=== PATIENT | female | born 1985 | race Caucasian/White ===

== ENCOUNTER 2021-04-29 11:59 | Emergency (ER) | payer BC, OTHER ==
[2021-04-29 12:04] VITALS: BP 129/86; PULSE 84; TEMP 97.8; BMI 29.2
[2021-04-29] MEDS ORDERED: KETOROLAC TROMETHAMINE 60 MG/2 ML VIAL IM ONE (13:33)
[2021-04-29] MEDS ORDERED: KETOROLAC TROMETHAMINE 60 MG/2 ML VIAL ONE (13:43)
== END 2021-04-29 14:48 | disposition home or self-care (01) ==
LOC: JERFT 11:59
PROC: 3E0233Z Introduction of Anti-inflammatory into Muscle, Percutaneous Approach (ICD-10-PCS; principal; 2021-04-29)
DX: M54.50 Low back pain, unspecified (principal)
CPT/HCPCS: 99283-25

== ENCOUNTER 2021-06-17 22:15 | Emergency (ER) | payer OTHER ==
[2021-06-17 22:24] VITALS: BP 118/75; PULSE 77; TEMP 97; BMI 31.1
[2021-06-17 23:39] LABS: BASO % 0.4 % (0-2.0); EOS % 0.4 % (0-4.5); HEMATOCRIT 36.9 % (32.4-45.2); HEMOGLOBIN 11.9 GM/dL (10.7-15.3); LYMPH % 23.3 % (8-40); MCH 23.1 pg (25.7-33.7); MCHC 32.1 g/dl (32.0-36.0); MEAN CELL VOLUME 71.9 fl (80-96); MEAN PLT VOLUME 8.4 fl (7.5-11.1); MONO % 9.1 % (3.8-10.2); NEUT % 66.8 % (42.8-82.8); PLATELET COUNT 365 10^3/uL (134-434); RBC 5.13 M/mm3 (3.60-5.2); RDW 15.8 % (11.6-15.6); WHITE BLOOD COUNT 13.5 K/mm3 (4.0-10.0)
[2021-06-17 23:46] LABS: EPI CELLS 4 /uL (0-25.1); HYALINE CASTS 1 /uL (0-3.1); PH,URINE 7.5 (5.0-8.0); URINE APPEARANCE CLEAR; URINE BACTERIA 940 /uL (0-1359); URINE BILIRUBIN NEGATIVE (NEGATIVE); URINE COLOR YELLOW; URINE GLUCOSE (UA) NEGATIVE (NEGATIVE); URINE KETONE NEGATIVE (NEGATIVE); URINE LEUK ESTERASE 2+ (NEGATIVE); URINE NITRITE NEGATIVE (NEGATIVE); URINE PROTEIN NEGATIVE (NEGATIVE); URINE RBC 58 /uL (0-23.9); URINE WBC 408 /uL (0-25.8)
[2021-06-17 23:55] LABS: INR 1.07 (0.83-1.09); PROTHROMBIN TIME (PATIENT) 12.3 SEC (9.7-13.0)
[2021-06-17 23:58] LABS: ACTIVATED PTT 30.8 SECONDS (25.2-36.5)
[2021-06-18 00:09] LABS: ALBUMIN 3.5 g/dl (3.4-5.0); BLOOD UREA NITROGEN 17.4 mg/dL (7-18); CALCIUM 9.1 mg/dL (8.5-10.1)
[2021-06-18 00:13] LABS: CREATININE 0.8 mg/dL (0.55-1.3)
[2021-06-18 00:14] LABS: TOT PROT 7.2 g/dl (6.4-8.2)
[2021-06-18 00:50] LABS: BILIRUBIN,TOTAL 0.2 mg/dL (0.2-1)
== END 2021-06-18 02:22 | disposition home or self-care (01) ==
LOC: JER 22:15
DX: O20.8 Other hemorrhage in early pregnancy (principal); N39.0 Urinary tract infection, site not specified
CPT/HCPCS: 36415; 76817-TC; 80053; 81003; 84702; 85025; 85610; 85730; 86850; 86900; 86901; 87086; 87186; 99284-25

== ENCOUNTER 2022-07-13 09:33 | Emergency (ER) | payer OTHER ==
[2022-07-13 09:45] VITALS: BP 113/61; PULSE 91; RESP 16; TEMP 99; BMI 30.2
== END 2022-07-13 10:07 | disposition home or self-care (01) ==
LOC: JER 09:33 → JERFT 09:33
DX: H10.32 Unspecified acute conjunctivitis, left eye (principal)
CPT/HCPCS: 99283-25

== ENCOUNTER 2023-01-31 16:24 | Emergency (ER) | payer OTHER ==
[2023-01-31 16:29] VITALS: BMI 34.0
[2023-01-31 17:59] LABS: BASO % 0.4 % (0-2.0); EOS % 0.6 % (0-4.5); HEMATOCRIT 38.8 % (32.4-45.2); HEMOGLOBIN 12.2 GM/dL (10.7-15.3); LYMPH % 24.3 % (8-40); MCH 23.1 pg (25.7-33.7); MCHC 31.5 g/dl (32.0-36.0); MEAN CELL VOLUME 73.3 fl (80-96); MEAN PLT VOLUME 9.5 fl (7.5-11.1); MONO % 7.7 % (3.8-10.2); PLATELET COUNT 285 10^3/uL (134-434); RBC 5.29 M/mm3 (3.60-5.2); RDW 14.7 % (11.6-15.6); WHITE BLOOD COUNT 10.3 K/mm3 (4.0-10.0)
[2023-01-31 18:05] LABS: EPI CELLS 3 /uL (0-25.1); HYALINE CASTS 0 /uL (0-3.1); PH,URINE 6.5 (5.0-8.0); URINE APPEARANCE CLEAR; URINE BACTERIA 52 /uL (0-1359); URINE BILIRUBIN NEGATIVE (NEGATIVE); URINE COLOR YELLOW; URINE GLUCOSE (UA) NEGATIVE (NEGATIVE); URINE KETONE NEGATIVE (NEGATIVE); URINE LEUK ESTERASE NEGATIVE (NEGATIVE); URINE NITRITE NEGATIVE (NEGATIVE); URINE PROTEIN NEGATIVE (NEGATIVE); URINE RBC 19 /uL (0-23.9); URINE UROBILINOGEN 0.2 mg/dL (0.2-1.0); URINE WBC 1 /uL (0-25.8)
[2023-01-31 18:22] LABS: POTASSIUM 3.7 mmol/L (3.5-5.1)
[2023-01-31 18:25] LABS: ALBUMIN 3.5 g/dl (3.4-5.0); BLOOD UREA NITROGEN 13.4 mg/dL (7-18)
[2023-01-31 18:28] LABS: CREATININE 0.7 mg/dL (0.55-1.3)
[2023-01-31 18:29] LABS: BILIRUBIN,TOTAL 0.1 mg/dL (0.2-1)
[2023-01-31 18:30] LABS: TOT PROT 7.2 g/dl (6.4-8.2)
[2023-01-31 21:02] VITALS: BP 122/78; PULSE 72; RESP 19; TEMP 98.6
== END 2023-01-31 21:03 | disposition home or self-care (01) ==
LOC: JER 16:24
DX: O20.9 Hemorrhage in early pregnancy, unspecified (principal); O26.891 Other specified pregnancy related conditions, first trimester; R10.9 Unspecified abdominal pain; M54.50 Low back pain, unspecified; Z3A.13 13 weeks gestation of pregnancy
CPT/HCPCS: 36415; 76817-TC; 80053; 81003; 84702; 85025; 86850; 86900; 86901; 87086; 99284-25

== ENCOUNTER 2023-04-01 21:30 | Observation (INO) | payer OTHER ==
[2023-04-01 21:54] VITALS: BMI 33.8
[2023-04-02 03:43] LABS: BASO % 0.3 % (0-2.0); EOS % 1.7 % (0-4.5); HEMATOCRIT 31.4 % (32.4-45.2); HEMOGLOBIN 10.5 GM/dL (10.7-15.3); MCH 23.5 pg (25.7-33.7); MCHC 33.5 g/dl (32.0-36.0); MEAN CELL VOLUME 70.1 fl (80-96); MEAN PLT VOLUME 9.1 fl (7.5-11.1); MONO % 6.8 % (3.8-10.2); NEUT % 68.2 % (42.8-82.8); PLATELET COUNT 227 10^3/uL (134-434); RBC 4.48 M/mm3 (3.60-5.2); RDW 14.4 % (11.6-15.6); WHITE BLOOD COUNT 10.7 K/mm3 (4.0-10.0)
[2023-04-02 04:04] LABS: POTASSIUM 3.6 mmol/L (3.5-5.1)
[2023-04-02 04:06] LABS: CALCIUM 8.4 mg/dL (8.5-10.1)
[2023-04-02 04:07] LABS: ALBUMIN 2.7 g/dl (3.4-5.0); BLOOD UREA NITROGEN 9.9 mg/dL (7-18)
[2023-04-02 04:10] LABS: CREATININE 0.4 mg/dL (0.55-1.3)
[2023-04-02 04:11] LABS: TOT PROT 6.3 g/dl (6.4-8.2)
[2023-04-02 04:12] LABS: BILIRUBIN,TOTAL 0.1 mg/dL (0.2-1)
[2023-04-02 04:36] LABS: EPI CELLS 9 /uL (0-25.1); HYALINE CASTS 1 /uL (0-3.1); PH,URINE 5.5 (5.0-8.0); URINE APPEARANCE CLEAR; URINE BACTERIA 192 /uL (0-1359); URINE BILIRUBIN NEGATIVE (NEGATIVE); URINE COLOR YELLOW; URINE GLUCOSE (UA) NEGATIVE (NEGATIVE); URINE KETONE NEGATIVE (NEGATIVE); URINE LEUK ESTERASE NEGATIVE (NEGATIVE); URINE NITRITE NEGATIVE (NEGATIVE); URINE PROTEIN NEGATIVE (NEGATIVE); URINE RBC 554 /uL (0-23.9); URINE UROBILINOGEN 0.2 mg/dL (0.2-1.0); URINE WBC 6 /uL (0-25.8)
[2023-04-02 08:32] VITALS: RESP 20
[2023-04-02 13:34] VITALS: BP 113/69; PULSE 96; TEMP 97.7
== END 2023-04-02 15:00 | disposition home or self-care (01) ==
LOC: JER 21:30 → JLDR 04-02 01:15
PROVIDERS: ADMIT Obstetrics & Gynecology; ATTEND Obstetrics & Gynecology
DX: O26.852 Spotting complicating pregnancy, second trimester (principal); O09.522 Supervision of elderly multigravida, second trimester; O99.212 Obesity complicating pregnancy, second trimester; Z3A.22 22 weeks gestation of pregnancy; D25.9 Leiomyoma of uterus, unspecified
CPT/HCPCS: 36415; 59025; 76815; 76817-TC; 80053; 81003; 85025; 99285-25; G0378